=== PATIENT | female | born 1960 | race Caucasian/White ===

== ENCOUNTER 2019-08-28 10:34 | Outpatient (CLI) | payer OTHER, SELFPAY ==
--- NOTE | ~2019-08-28 | US_ITS ---
EXAMINATION: US aorta DATE: 08/28/2019 11:12 INDICATION: Epigastric pain and pulsatile abdominal mass with risk factors of hypertension, smoking, obesity and hypercholesterolemia.. TECHNIQUE: Grayscale, color Doppler, and pulsed Doppler images of the aorta and common iliac arteries were obtained. COMPARISON: None. FINDINGS: The proximal aorta measures 2.7 cm in AP diameter. The mid aorta measures 2.0 cm. The distal aorta me asures 2.5 cm. The right common iliac artery measures 9 mm. The left common iliac artery measures 10 mm. No abnormal masses identified in the visualized portions of the abdomen. IMPRESSION: 1. Normal caliber abdominal aorta. No aneurysm. Reviewed, dictated and finalized at location A. BARBECUE
== END 2019-08-28 10:35 | disposition home or self-care (01) ==
LOC: ANHIMG 10:36
PROVIDERS: PCP Registered Nurse; Visit Provider Registered Nurse
DX: R10.13 Epigastric pain (principal); F17.200 Nicotine dependence, unspecified, uncomplicated; R19.00 Intra-abdominal and pelvic swelling, mass and lump, unspecified site
CPT/HCPCS: 76775

== ENCOUNTER 2019-09-11 07:21 | Outpatient (CLI) | payer OTHER, SELFPAY ==
--- NOTE | ~2019-09-11 | US_ITS ---
EXAMINATION: US right upper quadrant DATE: 09/11/2019 08:02 INDICATION: Epigastric abdominal pain. TECHNIQUE: Multiple grayscale and Doppler ultrasound images of the abdomen were obtained. COMPARISON: None FINDINGS: The visualized portions of the head and body of the pancreas are normal. There is an 8 mm c yst in the liver. No liver surface nodularity. There is normal flow in main portal vein. The gallblad shirley is normal in size. No gallstones or gallbladder wall thickening. There was no sonographic Sherwood sign. The common duct is normal and measures 4 mm. IMPRESSION: 1. No etiology for the patient's symptoms. Reviewed, dictated and finalized at location A. OR BLENDER
== END 2019-09-11 07:22 | disposition home or self-care (01) ==
LOC: ANHIMG 07:26
PROVIDERS: PCP Registered Nurse; Visit Provider Registered Nurse
DX: R10.13 Epigastric pain (principal)
CPT/HCPCS: 76705

== ENCOUNTER → 2020-02-28 10:32 | Outpatient (CLI) | payer OTHER, SELFPAY ==
--- NOTE | ~2020-02-28 | CT_ITS ---
EXAMINATION: CT lung screening DATE: 02/28/2020 10:45 INDICATION: Personal history of tobacco use, current smoker with 46 pack year history TECHNIQUE: Computed tomography (CT) of the chest was performed without intravenous contrast. The dose -length product (DLP) was 138.80 mGy-cm. Automated exposure control and iterative reconstruction tech [employer] were employed. COMPARISON: 02/06/2019, 12/13/2017 FINDINGS: An 8 mm nodule of the right lower lobe on image 65 previously measured 4 mm. Additional joana id and subsolid nodules are seen which are unchanged. There is no pleural effusion or pneumothorax. N o pathologically enlarged thoracic lymph nodes are identified. The heart size is normal. Calcified co ronary artery atherosclerosis is noted. Calcified pulmonary nodules and calcified left hilar lymph no kirstin are consistent with old granulomatous disease. There is moderate thoracic spondylosis. Punctate c alcifications in an otherwise normal spleen likely represent healed granulomatous disease. IMPRESSION: 1. Lung-RADS category 4B, very suspicious: PET/CT and/or CT guided biopsy of the enlarging right lowe r lobe nodule is recommended. Reviewed, dictated and finalized at location A. IMPRESSION: 1. Lung-RADS category 4B, very suspicious: PET/CT and/or CT guided biopsy of th e enlarging right lower lobe nodule is recommended.
== END ==
PROVIDERS: PCP Family Medicine; Visit Provider Family Medicine
DX: Z87.891 Personal history of nicotine dependence (principal)
CPT/HCPCS: G0297

== ENCOUNTER 2020-06-30 07:18 | Outpatient (CLI) | payer OTHER, SELFPAY ==
--- NOTE | ~2020-06-30 | PE_ITS ---
EXAMINATION: PET skull to mid thigh DATE: 06/30/2020 09:22 INDICATION: Lung nodule, dictated TECHNIQUE: Blood glucose level was 113 mg/dL. 11.03 mCi of 18-fluorodeoxyglucose (18-FDG) was adminis tered i.v. Low dose computed tomography (CT) images were acquired from the base of the brain to the p roximal thighs for attenuation correction and anatomic localization. Positron emission tomography (PE T) images were acquired in the same distribution beginning 64 minutes after injection. The dose-lengt h product (DLP) was 672.04 mGy-cm. COMPARISON: CTs dated 02/28/2020 and 02/06/2019 FINDINGS: Head/neck: No abnormal FDG uptake is identified. FDG uptake in the oral cavity and vocal cords is lik marcial physiologic. Chest: There is an 8 mm nodule of the right lower lobe with low-level GI uptake. Additional previousl y described nodules are stable and do not demonstrate FDG uptake which could be related to their smal l size or subsequent composition. Calcified pulmonary nodules and calcified left hilar lymph nodes ar e consistent with old granulomatous disease. No pathologically enlarged thoracic lymph nodes are iden tified. The heart size is normal. There is no pleural effusion or pneumothorax. Abdomen/pelvis/proximal thighs: Physiologic FDG activity is present in the bowel and urinary tract. N o abnormal FDG uptake is identified. Punctate calcifications in an otherwise normal spleen likely rep resent healed granulomatous disease. The liver, pancreas, gallbladder, and adrenal glands are normal. The kidneys are unremarkable. No pathologically enlarged abdominal or pelvic lymph nodes are identif ied. There is no free intraperitoneal gas or evidence of bowel obstruction. There is calcified athero sclerosis of the aorta and many of the other arteries. The appendix is normal. There appear to be mul tiple fibroids of the enlarged uterus. There is mild wall thickening of the urinary bladder. Musculoskeletal: No abnormal FDG uptake is identified. There is moderate thoracic and lumbar spondylo sis. IMPRESSION: 1. Right lower lobe nodule with low-level FDG uptake. CT-guided biopsy is recommended. 2. Mild wall thickening of the urinary bladder which could reflect incomplete distention however alka elation with urinalysis is recommended. 3. Likely fibroid uterus. Reviewed, dictated and finalized at location A. UATE STUDENT INSTRUCTOR IMPRESSION: 1. Right lower lobe nodule with low-level FDG uptake. CT-guided biopsy is recom mended. 2. Mild wall thickening of the urinary bladder which could reflect incomplete d istention however correlation with urinalysis is recommended. 3. Likely fibroid uterus.
[2020-06-30 07:50] LABS: Glucose Point of Care 113 (65-105)
== END 2020-06-30 07:19 | disposition home or self-care (01) ==
LOC: ANHIMG 07:27
PROVIDERS: PCP Family Medicine
DX: R91.8 Other nonspecific abnormal finding of lung field (principal); R91.1 Solitary pulmonary nodule; F17.210 Nicotine dependence, cigarettes, uncomplicated
CPT/HCPCS: 78815; A9552

== ENCOUNTER 2021-10-11 16:36 | Emergency (ER) | payer OTHER, SELFPAY ==
[2021-10-11] VITALS (10 sets, daily range): BP systolic 139–183; BP diastolic 62–99; PULSE 77–95; RESP 17–18; TEMP 36.7; O2SAT 96–99
--- NOTE | ~2021-10-11 | XR_ITS ---
EXAMINATION: XR chest 2V Exam Date/Time: 10/11/2021 17:15 CDT CLINICAL HISTORY: dizziness Comparison: CT lung screening 02/28/2020. RESULT: Lines, tubes, and devices: None. Lungs and pleura: No acute finding. Grossly stable known right midlung nodule. Cardiomediastinal silhouette: Normal cardiomediastinal silhouette. Other: No acute osseous or upper abdominal finding. IMPRESSION: No acute cardiopulmonary process. Reviewed, dictated and finalized at location K.
--- NOTE | ~2021-10-11 | CT_ITS ---
EXAMINATION: CTA brain carotid DATE: 10/11/2021 18:31 INDICATION: Dizziness, right facial droop. TECHNIQUE: Computed tomographic angiography (CTA) of the head was performed without and with 100 mL O mnipaque-350 intravenous contrast. CTA of the neck was performed with intravenous contrast. Automated exposure control and iterative reconstruction technique were employed. The dose-length product was 1 706.46 mGy-cm. Maximum intensity projection and volume rendered 3D-reconstructions were created by oh stahl technologist on a separate workstation. COMPARISON: PET CT 06/30/2020, CT lung screening 02/28/2020. FINDINGS: HEAD CTA: No large vessel occlusion. No intracranial aneurysm or high flow vascular malformation. No evidence of active contrast extravasation. Scattered mild intracranial carotid atherosclerotic calcif ication. No acute large vessel infarct. No mass, intrarenal hemorrhage, or hydrocephalus. Sphenoid ai r-fluid level and aerated secretions. NECK CTA: Aortic arch and proximal great vessels: Mild atherosclerotic calcifications at the visualized aortic arch and proximal great vessels. Right common carotid, carotid bifurcation, and internal carotid artery: Patent. No significant stenos is. Minimal noncalcified atherosclerotic plaque at the bifurcation. Left common carotid, carotid bifurcation, and internal carotid artery: Patent. No significant stenosi s. Minimal calcified atherosclerotic plaque at the bifurcation. Vertebral arteries: Patent and codominant. Redemonstration of bilateral upper lobe subsolid nodules. There is 0% stenosis of the proximal right internal carotid artery relative to normal distal artery l umen diameter (NASCET criteria). There is 0% stenosis of the proximal left internal carotid artery re lative to normal distal artery lumen diameter. IMPRESSION: No acute large vessel infarct. CT findings that may reflect acute sphenoid sinusitis in the appropria te clinical context. Redemonstration of subsolid lung nodules, recommend CT lung cancer screening for continued evaluation. Reviewed, dictated and finalized at location K. IMPRESSION: No acute large vessel infarct. CT findings that may reflect acute sphenoid sinu sitis in the appropriate clinical context. Redemonstration of subsolid lung nod ules, recommend CT lung cancer screening for continued evaluation.
--- NOTE | 2021-10-11 16:56 | ECG_ITS ---
Measurements Intervals [place] Rate: 77 P: 18 [place]: 149 QRS: 30 QRSD: 101 T: 56 QT: 383 QTc: 435 Interpretive Statements SINUS RHYTHM NO PREVIOUS ECG AVAILABLE FOR COMPARISON Electronically Signed On 10-12-2021 8:45:00 CDT by Harley Acosta M.D.
[2021-10-11 17:45] LABS: Basophils Percent Auto 0.4 % (0.2-1.2); Eosinophils Absolute Auto 0.2 K/mm3 (0-0.3); Eosinophils Percent Auto 2.3 % (0-4.4); Hematocrit 41.9 % (37.0-47.0); Hemoglobin 13.3 g/dL (12.0-15.0); Immature Granulocyte Absolute 0.04 K/mm3 (0.00-0.031); Immature Granulocyte Percent A 0.4 % (0-0.5); Lymphocytes Absolute Auto 1.92 K/mm3 (0.9-3.2); Lymphocytes Percent Auto 18.9 % (18.3-44.2); Mean Corpuscular HGB Conc 31.7 g/dl (32-36); Mean Corpuscular Volume 97.7 fl (80-100); Mean Platelet Volume 9.9 fl (7.4-10.4); Monocytes Absolute Auto 0.9 K/mm3 (0.1-0.6); Monocytes Percent Auto 8.6 % (2.6-8.5); Neutrophils Absolute Auto 7.1 K/mm3 (1.3-6.7); Neutrophils Percent Auto 69.4 % (45.5-73.1); Platelet Count Result 298 k/mm3 (150-375); Red Blood Count 4.29 M/mm3 (4.2-5.4); White Blood Count 10.2 K/mm3 (4.5-10.0)
[2021-10-11 17:55] LABS: Alanine Aminotransferase 15 U/L (4-35); Albumin Level 4.4 g/dL (3.5-5.1); Alkaline Phosphatase 66 U/L (38-126); Anion Gap 5 mmol/L (8-16); Aspartate Amino Transferase 24 U/L (14-36); Bilirubin,Total 0.4 mg/dL (0.2-1.3); Blood Urea Nitrogen 15 mg/dL (7-17); Calcium 8.6 mg/dL (8.4-10.2); Carbon Dioxide 23 mmol/L (22-30); Chloride 110 mmol/L (98-107); Estimated CRCL calculation 82 ml/min; Estimated Glomerular Filt Rate > 60; Glucose 104 mg/dL (65-110); Sodium 138 mmol/L (137-145)
[2021-10-11 18:00] LABS: Glucose Point of Care 113 mg/dl (65-105)
[2021-10-11 18:02] LABS: Add Urine Microscopic? YES; Appearance Urine Cloudy (Clear); Bilirubin Urine Negative (Negative); Blood Urine 2+ (Negative); Color Urine Yellow (Yellow); Glucose Urine UA Negative (Negative); Ketones Urine Negative (Negative); Leukocyte Esterase Ur Negative LEU/UL (Negative); Mucus Urine Rare /lpf; Nitrate Urine Negative (Negative); Protein Urine Negative (Negative); Specific Grav Ur 1.015 (1.001-1.035); Squamous Epithelial Cell Urine Occasional /hpf (Few); Urobilinogen Urine Negative mg/dL (<2.0)
[2021-10-11 18:07] LABS: Troponin I < 0.012 ng/mL (0.000-0.034)
--- NOTE | 2021-10-11 18:12 | ED.DIZZY ---
HPI - Dizziness General Chief Complaint: Dizziness Stated Complaint: mini stroke per Urgent Care Time Seen by Provider: 10/11/21 16:49 Source: patient and RN notes reviewed Mode of arrival: ambulatory Limitations: no limitations History of Present Illness HPI Narrative: This is 61 year old female who presents for evaluation of dizziness. Patient was evaluated at an for dizziness. She states she was told that she had fluid behind her ear. She also states she was told she had facial droop, so it was recommended that she come to ER for evaluation of a CVA. Patient states she does not think her smile is any different than normal. Her family at bedside agrees her smile is the same, and they do not appreciate facial droop. She woke up this morning at 4 am with dizziness. She describes her dizziness as feels unsteady. She has not been falling . She denies blurred vision, double vision, focal weakness, numbness tingling, nausea, vomiting. Related Data Allergies Allergy/AdvReac Type Severity Reaction Status Date / Time bupropion Allergy Unknown UNKNOWN Verified 12/13/18 09:18 Review of Systems Review of Systems: All systems reviewed & are unremarkable except as noted in HPI and below Constitutional: Constitutional: Denies chills and Denies fever(s) ENT: Reports nasal congestion and Denies sore throat Cardiovascular: Cardiovascular: Denies chest pain Respiratory: Respiratory: Denies cough and Denies dyspnea Gastrointestinal: Gastrointestinal: Denies abdominal pain, Denies diarrhea, Denies nausea and Denies vomiting Neurologic: Denies vertigo, Reports dizziness, Denies headache(s), Denies focal weakness and Denies numbness PMFSH Past Medical History Medical History (Updated 10/11/21 @ 19:54 by Candie Womack MD) Depression Hyperlipidemia Hypertension Social History Social History (Updated 10/11/21 @ 18:17 by Candie Womack MD) Smoking packs per day: 1 Smoking cigarettes per day: 20.0 Smoking status: Current every day smoker Exam Const: General: no acute distress and alert Orientation/consciousness: patient oriented x3 HENMT: Ears: TM's normal bilaterally General nose exam: Normal external nose present and Normal nares present Face and sinus: sinuses nontender and normal transillumination of the sinuses Mouth: Yes Normal oral and palatal mucosa present, Yes lip normal, Yes tongue normal, Yes oropharynx normal and Yes moist mucous membranes Throat: posterior oropharynx normal, tonsils normal and uvula midline Eyes: Pupils: Equal, round and reactive pupils present EOM: EOMs intact bilaterally Other: no nystagmus Chest: Chest palpation & inspection: normal inspection of the chest Resp: Effort & Inspection: normal respiratory effort and no retractions Auscultation: clear to auscultation bilaterally Cardio: Rate: regular rate Rhythm: regular rhythm Heart sounds: no murmurs GI: GI Palp: Yes Soft to palpation, No Tenderness to palpation present (GI), No Guarding due to palpation present (GI) and No Rigid due to palpation Auscultation: normal bowel sounds Skin: General skin exam: normal color Rashes: no rashes Neuro: General: patient oriented x3, moves all extremities, no meningeal signs and CN's II-XI intact bilaterally (except possible right nasolabial flattening ) Cranial nerves: Yes CN's II-XII intact bilaterally and Yes Nystagmus not present Cognition (Neuro): normal cognition Speech: normal speech Motor exam (neuro): 5/5 motor strength present throughout Sensory Exam: normal sensation Coordination: [id number] test normal and [id number] test normal Other: patient has known left foot drop Psych: Mental Status: mental status grossly normal Course Reevaluation(s) Reevaluation #1: Patient was able to ambulate to bathroom without dizziness. Patient has known left foot drop but no other new deficit. Her smile does looks slightly asymmetric but she states her smile is no
--- NOTE | 2021-10-11 18:15 | PC.NURSE ---
patient off unit to radiology.
[2021-10-11 18:18] LABS: INR 0.9; Prothrombin Time 12.1 Seconds (11.1-14.7)
[2021-10-11 18:19] LABS: Partial Thromboplastin Time 26.4 SECONDS (22.3-36.8)
== END 2021-10-11 20:19 | disposition home or self-care (01) ==
PROVIDERS: Emergency Provider General Practice; PCP Hospitalist
DX: R42 Dizziness and giddiness (principal); J01.30 Acute sphenoidal sinusitis, unspecified; F32.A Depression, unspecified; E78.5 Hyperlipidemia, unspecified; I10 Essential (primary) hypertension; F17.210 Nicotine dependence, cigarettes, uncomplicated
CPT/HCPCS: 36415; 70496; 70498; 71046; 80053; 81001; 82948; 84484; 85025; 85610; 85730; 93005; 99284; Q9967